=== PATIENT | male | born 1940 | race Caucasian/White ===

== ENCOUNTER → 2019-06-06 09:00 | Outpatient (BNVA) | payer MEDICARE, BC, SELFPAY | PROVIDERS: Referring Provider Internal Medicine; Visit Provider Nurse Practitioner Gerontology | DX: N40.1 Benign prostatic hyperplasia with lower urinary tract symptoms (principal); R33.8 Other retention of urine; R31.0 Gross hematuria; F17.200 Nicotine dependence, unspecified, uncomplicated; R97.20 Elevated prostate specific antigen [PSA]; I10 Essential (primary) hypertension | CPT/HCPCS: 51798; 99204 ==

== ENCOUNTER 2019-06-06 10:38 | Outpatient (CLI) | payer MEDICARE, BC, SELFPAY ==
[2019-06-06] MEDS: Omnipaque 350 MG/ML 100 ML BTL IJ (11:34)
[2019-06-06] MEDS: Normal Saline Flush 10 ML SYR IVP (11:35)
--- NOTE | 2019-06-06 11:36 | DI.CT_ITS ---
EXAM: CT ABDOMEN AND PELVIS WO/W TECHNIQUE: Imaging Protocol: Axial computed tomography images with coronal and sagittal reformatted images were created and reviewed CONTRAST MATERIAL: Intravenous: Omnipaque 350 Contrast volume:100 mL contrast route:IV - Oral:No COMPARISON: No exams were available for comparison FINDINGS: The noncontrast examination of the abdomen and pelvis shows no nephrolithiasis, ureterolithiasis, or obstructive uropathy. Post contrast examination was performed. The lung bases are clear. The liver is normal in size. No suspicious hepatic mass is seen. The portal, superior mesenteric, and splenic veins are patent. Th e gallbladder is unremarkable. There is no biliary ductal dilatation. The pancreas, spleen, and adr enal glands are unremarkable. The kidneys show normal and symmetric enhancement. There are tiny hypodensities seen in the kidneys bilaterally. They are too small for further characterization but probably reflects cysts. No suspici ous solid renal mass is present. The urinary bladder is intact. There is diffuse thickening of the wall of the urinary bladder. Mild increased attenuation in the surrounding fat is noted. This may reflect an inflammatory/infectious cystitis. The prostate gland is markedly enlarged measuring 5.6 cm transverse x 0.8 cm AP x 5.6 cm c raniocaudad. It does impinge upon the base of the urinary bladder. There diverticulosis of the colon. There is no evidence of acute diverticulitis. The bowel gas patric azeem is nonspecific without evidence of obstruction. There is a normal appendix visualized. There is atherosclerosis of the abdominal aorta. No aneurysmal dilatation is present. No significan t abdominal or pelvic adenopathy, ascites, or pneumoperitoneum is present. Degenerative changes are present throughout the spine. 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 Delayed images through the renal collecting system were performed. No evidence of obstruction is seen . No filling defects are seen in the collecting system. IMPRESSION: 1. No evidence of nephrolithiasis or obstructive uropathy 2. Prostatic hypertrophy. 3. Diffuse thickening of the wall of the urinary bladder; inflammatory/infectious cystitis cannot be excluded. Chronic bladder outlet obstruction should also be considered. DATA REPOSITORY: All CT scans at this facility are submitted to the National Radiology Data Registry (NRDR) Dose Index Registry (DIR) with the [employer] ([employer]). RADIATION OPTIMIZATION: All CT scans at this facility use at least one of these dose optimization te chniques: automated exposure control; mA and/or kV adjustment per patient size (includes targeted exa ms where dose is matched to clinical indication); or iterative reconstruction.
== END 2019-06-06 10:58 ==
PROVIDERS: PCP Nurse Practitioner Gerontology; Visit Provider Nurse Practitioner Gerontology
DX: N40.1 Benign prostatic hyperplasia with lower urinary tract symptoms; R31.0 Gross hematuria; R31.9 Hematuria, unspecified; R33.8 Other retention of urine; N32.89 Other specified disorders of bladder
CPT/HCPCS: 51798; 99204; 74178; J3490

== ENCOUNTER → 2019-07-02 08:20 | Outpatient (BNVA) | payer MEDICARE, BC, SELFPAY | PROVIDERS: PCP Nurse Practitioner Gerontology; Referring Provider Nurse Practitioner Gerontology; Visit Provider Urology | DX: R31.0 Gross hematuria (principal) | CPT/HCPCS: 52000; 99213 ==

== ENCOUNTER → 2019-07-16 08:51 | Outpatient (BNVA) | payer MEDICARE, BC, SELFPAY | PROVIDERS: PCP Nurse Practitioner Gerontology; Referring Provider Nurse Practitioner Gerontology; Visit Provider Urology | DX: N40.1 Benign prostatic hyperplasia with lower urinary tract symptoms (principal); R33.8 Other retention of urine | CPT/HCPCS: 51728; 51784; 51797; 99212 ==